=== PATIENT | female | born 1975 | race African-American/Black ===

== ENCOUNTER → 2016-10-17 | Outpatient (CLI) | payer OTHER ==
[~2016-10-17] MED LIST: ACETAMINOPHEN PO; ATORVASTATIN CA20 MG PO; CATAPRES0.1 M1 PO; CLARITIN10 M3 PO; METFORMIN HCL1000 M1 PO; METOPROLOL SUCC25 MG PO; NEURONTIN100 MG PO; NORCO 7.5-3251 EACH PO; NORVASC10 MG PO; PHENERGAN PO; PRINIVIL20 M1 PO; SYNTHROID125 PO; TYL325 PO
--- NOTE | ~2016-10-17 | EKG ---
PATIENT: FERCHO PETE UNIT #: [id number] Ventricular Rate: 91 BPM Atrial Rate: 91 BPM P-R Interval: 210 ms QRS Duration: 106 ms Q-T Interval: 386 ms QTC Calculation(Bezet): 474 ms P [place]: 58 degrees Calculated R [place]: -38 degrees Calculated T [place]: 56 degrees Diagnosis Line: Sinus rhythm with 1st degree A-V block Diagnosis Line: Possible Left atrial enlargement Diagnosis Line: Left axis deviation Diagnosis Line: Abnormal ECG Diagnosis Line: No previous ECGs available Diagnosis Line: Confirmed by HAFSA LUNSFORD MD ([id number]) on 10/18/2016 Diagnosis Line: 6:08:33 AM INTERPRETING MD: ISATU PINZON
--- NOTE | ~2016-10-17 | CR63 ---
[facility] A Service of [facility] RADIOLOGY TEXT RESULTS PATIENT: FERCHO PETE LOCATION: [facility] : [birth year] UNIT #: [id number] AGE: [address]: Oj Agudelo MD SEX: F ORDER DR: [id number] [facility] [address] [place], [place] [address] [id number] O MR#: [id number] Acc #: [id number] NAME: FERCHO PETE : 1975 SEX: F STUDY DATE/TIME: 10/17/2016 11:22 UNIT: [facility] ROOM: STUDY DESCRIPTION: CR Chest 2 View Attending Physician: Oj Agudelo M.D. Referring Physician: Oj Agudelo M.D. Ordering Physician: Oj Agudelo M.D. Primary Care Physician: Jose Pavon M.D. MEDICAL IMAGING REPORT This report is preliminary unless electronic signature is present EXAM Chest PA and lateral 10/17/2016 HISTORY Preop total thyroidectomy, shortness of breath for 2 months. Benign essential hypertension. FINDINGS PA and lateral examination of the chest upright shows a good expansion of the parenchyma with a normal distribution of the pulmonary vascularity. There is no indication of congestion, effusion, infiltrate, tumor, or nodular density. The pleural reflections and diaphragmatic contours are normal. The cardiac silhouette and mediastinal anatomy is within normal limits. IMPRESSION Normal chest. Dictated by... Hay Harmon M.D. THIS IS AN ELECTRONICALLY VERIFIED REPORT Hay Harmon M.D. at 10/18/2016 9:34 AM VINAY/cristin TD: 10/17/2016 12:44 JOB #: [id number] MEDICAL IMAGING REPORT Page 1 of 1 COPY
[2016-10-17 10:40] LABS: HEMOGLOBIN 13.5 gm/dL (12.0-16.0); MEAN CELL VOLUME 86.3 FL (83-96); MEAN CORPUSCULAR HEMOGLOBIN 29.1 PG (28-34); MEAN CORPUSCULAR HGB CONC 33.8 g/dL (30-36); MEAN PLATELET VOLUME 8.5 FL (6.5-11.5); RED BLOOD COUNT 4.64 X10e (3.90-5.30); WHITE BLOOD COUNT 10.6 X10e3 (4.0-10.5)
[2016-10-17 11:05] LABS: ALBUMIN SERUM 3.5 g/dL (3.5-5.0); BILIRUBIN,TOTAL 0.2 mg/dL (0.2-2.0); BUN/CREATININE RATIO 16.66; CREATININE SERUM 0.9 mg/dL (0.6-1.4); GLOM FILT RATE Estimated 90.8 mL/min (>60); POTASSIUM 3.8 mmol/L (3.5-5.1); PROTEIN TOTAL SERUM 6.9 g/dL (6.0-8.3)
== END | disposition home or self-care (01) ==
LOC: CAMB 09:34
PROVIDERS: Surgery
DX: Z01.818 Encounter for other preprocedural examination (principal)
CPT/HCPCS: 36415; 71020; 80053; 85027; 93005

== ENCOUNTER 2016-10-24 05:49 | Observation (INO) | payer OTHER ==
--- NOTE | ~2016-10-24 | OR ---
Unit #: [id number] #: [id number] Patient: FERCHO PETE [id number] [address] [address] [id number] MR#: [id number] NAME: FERCHO PETE. ROOM: 469 Date of Procedure: 10/24/2016 Admission Date: 10/24/2016 Surgeon: Oj Agudelo M.D. : 1975 Attending Physician: Oj Agudelo M.D. Referring Physician: Oj Agudelo M.D. Primary Care Physician: Jose Pavon M.D. OPERATIVE REPORT PREOPERATIVE DIAGNOSES 1. Enlarged thyroid with pressure symptoms. 2. Cystic mass of isthmus. POSTOPERATIVE DIAGNOSES 1. Enlarged thyroid with pressure symptoms. 2. Cystic mass of isthmus. PROCEDURE PERFORMED Total thyroidectomy. PENSION CONSULTANT Brit Johnson, certified medical asst. ANESTHESIA General endotracheal anesthesia with 0.5% Marcaine, plain local anesthesia. FINDINGS The left recurrent nerve was well seen. Bilateral superior parathyroids were seen and viable at the end of the procedure. SPECIMENS Sent to pathology. COMPLICATIONS None apparent. CONDITION The patient tolerated the procedure well. INDICATIONS FOR PROCEDURE The patient is a 41-year-old black female, who has an enlarged right and left lobe of the thyroid with pressure symptoms that are now causing difficulty with swallowing and much discomfort. In addition, she was found to have a cystic mass in the isthmus of her thyroid. She presents at this time for total thyroidectomy. DESCRIPTION OF PROCEDURE After obtaining informed consent as well as receiving preoperative antibiotics and knee-high SCDs, the patient was brought to the operating room and after adequate general endotracheal anesthesia was obtained, had a roll placed under shoulders and had her neck gently hyperextended, but the head well supported. The chin, neck and chest were prepped and draped Unit #: [id number] #: [id number] Patient: FERCHO PETE in a sterile fashion. A curvilinear incision was made with the knife in a marked skin fold. It was taken down through the skin with a knife and through the subdermal tissues, subcutaneous tissues and platysma with electrocautery. A superior flap was raised to the level of the thyroid notch and inferior flap was raised to the level of the sternal notch. The strap muscles were divided in the midline with good hemostasis. Beginning first on the left, the strap muscles were dissected off the anterior surface of the left lobe of the thyroid. The superior pole vessels were dissected free very carefully. The feeding vessels were taken with hemoclips as well as bipolar forceps and micro clips. The middle thyroid vein as well as inferior thyroid artery were taken with micro-clips and with medium-sized clips and the other feeding vessels and attachments were taken with the bipolar forceps as the left lobe of the thyroid was rotated up anteromedially. The left recurrent laryngeal nerve was identified and meticulously avoided. The left superior parathyroid was identified and meticulously avoided. The left lobe was mobilized up anteromedially off the trachea with electrocautery and was dissected across the midline. There was a large cystic mass present within the isthmus. At this point in time, the strap muscles were dissected off the right lobe of the thyroid very carefully with bipolar forceps. In a similar fashion, the superior pole vessels were taken with micro-clips and hemoclips, medium sized. The middle thyroid vein and inferior thyroid artery were taken in a similar fashion. The right lobe of the thyroid was mobilized up anteromedially with feeding vessels taken with bipolar forceps and the hemoclips. The thyroid was dissected off the anterior surface of the trachea with good hemostasis and oriented and sent to pathology. The wound was copiously irrigated. There was good hemostasis in all areas of dissection even with multiple Valsalva breaths. A small piece of Surgicel was placed on each area of the thyroid bed. The strap muscles were reapproximated with interrupted [id number] 3-0 Vicryl sutures. The subcutaneous tissues were irrigated. Hemostasis was obtained with the Bovie, infiltrated with 0.5% Marcaine plain local anesthesia. Subcutaneous tissues and platysma were reapproximated with a running 3-0 Vicryl suture. The skin was closed with 4-0 Vicryl subcuticular stitch. Benzoin and Steri-Strips were applied over the wound in an occlusive manner. Needle counts, sponge counts, and instrument counts were all correct as reported by the scrub nurse x2. A dry dressing was applied. The patient went from the operative room to recovery room in stable condition. Dictated by... Srikanth Lopez/wellington TD: 11/08/2016 01:52 JOB #: [id number] Arely Luis M.D. [facility] Unit #: [id number] #: [id number] Patient: FERCHO PETE OPERATIVE REPORT Page 1 of 1 X Oj Agudelo MD PROCEDURE OPERATIVE NOTE
--- NOTE | ~2016-10-24 | CO ---
Unit #: [id number] #: [id number] Patient: FERCHO PETE [id number] [facility]. [place], [place] [address] [id number] I MR#: [id number] NAME: FERCHO PETE ROOM: 469 Age: 41 Sex: F Admission Date: 10/24/2016 : 1975 Attending Physician: Oj Agudelo M.D. Primary Care Physician: Jose Pavon M.D. Consultation Date: 10/24/2016 CONSULTATION REPORT REASON FOR CONSULTATION Management of diabetes mellitus and postoperative hypothyroidism. HISTORY OF PRESENT ILLNESS This is a 41-year-old black female, who was seen by me in office for the enlarged thyroid gland. Chief complaint were feeling of fullness and pressure in the neck and also intermittent difficulty in swallowing. Thyroid ultrasound showed diffusely enlarged thyroid gland, no nodules. She underwent total thyroidectomy today. Note, she does have positive family history of thyroid cancer in her first cousin. She does have a known history of type 2 diabetes mellitus, for which she follows Dr. Pavon. Her blood sugar has been above 300 mg/dL today. She takes metformin at home. ALLERGIES No known drug allergies. PAST MEDICAL HISTORY Type 2 diabetes mellitus, morbid obesity, hypertension, and hyperlipidemia. HOME MEDICATIONS Include amlodipine 10 mg daily, atorvastatin 20 mg daily, lisinopril 10 mg daily, metformin 1000 mg b.i.d. SOCIAL HISTORY Lives at home. No alcohol abuse. REVIEW OF SYSTEMS A 12-point review of systems was completed and remarkable for some soreness at the local surgical site. Otherwise, she declines any nausea, vomiting, numbness, tingling, burning around her mouth or hands. No difficulty in swallowing. She has been tolerating liquids. She has no shortness of air. Rest of the 12-point review of systems unremarkable. PHYSICAL EXAMINATION GENERAL: She is morbidly obese. VITAL SIGNS: She weighs 302 pounds with BMI of 46, blood pressure 148/68, pulse is 83 and temperature 98. HEENT: EOMI. Pupils equally reactive to light. NECK: Supple. She has a dressing at the surgical site. CHEST: Good air entry. CVS: Regular rhythm. S1, S2. No murmurs. ABDOMEN: Soft, nontender, obese, bowel sounds positive. Unit #: [id number] #: [id number] Patient: FERCHO PETE EXTREMITIES: No ulcers noted. No edema noted. DIAGNOSTIC STUDIES LABORATORY RESULTS: Reviewed. BMP is within normal limits. BUN and creatinine are normal. ASSESSMENT 1. Type 2 diabetes mellitus, poorly controlled. 2. History of total thyroidectomy. The patient has a postoperative hypothyroidism. PLAN Start the patient on Levemir 40 units at bedtime. Get nutrition consult. NovoLog 10 units each meal plus medium dose supplement of sliding scale. Accu-Cheks a.c. and h.s. Start levothyroxine 125 mcg daily. Follow up in office in 4 weeks. Dictated by... Srikanth Gaona/wellington TD: 10/25/2016 00:45 JOB #: [id number] CONSULTATION REPORT Page 1 of 1 X Arely Luis MD X CONSULTATION REPORT
--- NOTE | ~2016-10-24 | A ---
[facility] Nutrition Therapy DATE: 10/25/16 Patient: FERCHO PETE Physician: JOHN Address: [address] [place] [address] Room/Bed: [address] [place] [address], Zip: [place] [address] Admit Date: 10/24/16 Date of : [birth year] Height: 5 8 Weight: 302 137.4 NUTRITIONAL ASSESSMENT: REASON: Consult RE: diabetic diet education + high BMI documentation 41 yo female admitted for double thyroid nodules Anthropometrics: Ht: 5'8" Wt: 137.3 kg (302#) BMI: 46.0 Assessment: RD product development intern provided written and verbal diabetic diet education. Pt expressed interest and willingness to change. Pt reported skipping meals, usually having 1 meal/d and consuming large amounts of soda. Pt reported 60# unintentional weight loss over the past ~[address] product development intern encouraged eating consistently throughout the day and decreasing soda consumption while adding water into diet. RD product development intern provided tips for meal prep since pt reported busy schedule. Pt verbalized understanding. Pt stated "needing to make changes" in her diet, expect moderate compliance with diet when d/c'd. Pt asked questions, RD product development intern responded appropriately. RD product development intern to remain available. Intervention: 1. Diet education 2. Consistent carb diet Recommendations: 1. Please add consistent carb + healthy heart diet restriction to promote gradual weight loss towards healthy BMI. 2. Encourage compliance with diabetic diet. 3. Reconsult RD if further diet education is needed/requested. RD will f/u per protocol. Respectfully, Mary Grant, Technical Product Manager Hunter Blankenship MS, RD, LD Food and Nutritional Services [facility] cc: client file
[~2016-10-24 05:49] MED LIST changes: -ACETAMINOPHEN PO; -NORCO 7.5-3251 EACH PO; -PHENERGAN PO; -SYNTHROID125 PO; -TYL325 PO
[2016-10-25] MEDS ORDERED: TYL325 PO (10:57)
[2016-10-25] MEDS ORDERED: ACETAMINOPHEN PO (10:58)
[2016-10-25] MEDS ORDERED: SYNTHROID125 PO (11:18)
[2016-10-25] MEDS ORDERED: PHENERGAN PO (11:23)
[2016-10-25] MEDS ORDERED: NORCO 7.5-3251 EACH PO (11:25)
== END 2016-10-25 14:15 | disposition home or self-care (01) ==
LOC: CSUR 05:49 → CPACUOF 10:20 → C4C 12:20
PROVIDERS: Surgery
PROC: 0GTK0ZZ Resection of Thyroid Gland, Open Approach (ICD-10-PCS; principal; 2016-10-24 07:30)
DX: E01.0 Iodine-deficiency related diffuse (endemic) goiter (principal); E04.1 Nontoxic single thyroid nodule; E89.0 Postprocedural hypothyroidism; Z80.8 Family history of malignant neoplasm of other organs or systems; E11.65 Type 2 diabetes mellitus with hyperglycemia; Z79.84 Long term (current) use of oral hypoglycemic drugs; E78.5 Hyperlipidemia, unspecified; I10 Essential (primary) hypertension; E66.01 Morbid (severe) obesity due to excess calories; Z68.42 Body mass index [BMI] 45.0-49.9, adult; Z79.899 Other long term (current) drug therapy; F17.200 Nicotine dependence, unspecified, uncomplicated; R06.02 Shortness of breath; Z90.49 Acquired absence of other specified parts of digestive tract
CPT/HCPCS: 82310; 82947; 84703; 88307; 96374; 96376; G0378; J0330; J0690; J1170; J1815; J2250; J2270; J2405; J2710; J3010